=== PATIENT | female | born 1930 | race African-American/Black ===

== ENCOUNTER 2016-08-09 16:52 | Emergency (ER) | payer MEDICARE, BC ==
[~2016-08-09 16:52] MED LIST: COMBIGAN0.2 MG/0.5 OP; COSOPT OPH; CYANO1000T PO; ENABLEX15 PO; FISH OIL PO; FOSAMAX70 MG PO; HYZAAR 100/25 T1 TAB PO; KCL20UDL PO; LIBRAX PO; LUMIGAN OPH; MAXZIDE PO; NORV5 PO; PRILO PO; VITAMIN D31000 UNIT PO
== END 2016-08-09 17:41 | disposition home or self-care (01) ==
LOC: ER 16:52
DX: R05 Cough (principal); I12.9 Hypertensive chronic kidney disease with stage 1 through stage 4 chronic kidney disease, or unspecified chronic kidney disease; N18.9 Chronic kidney disease, unspecified; K21.9 Gastro-esophageal reflux disease without esophagitis; Z79.899 Other long term (current) drug therapy
CPT/HCPCS: 71020; 99283